=== PATIENT | male | born 1945 | race Caucasian/White ===

== ENCOUNTER → 2023-09-17 | Day surgery (SDC) | payer OTHER | END | disposition home or self-care (01) | LOC: ADM 09-05 13:30 → AMB-ENDOS 09-10 13:30 | PROVIDERS: ATTEND Colon & Rectal Surgery | DX: K57.32 Diverticulitis of large intestine without perforation or abscess without bleeding (principal); Z20.822 Contact with and (suspected) exposure to COVID-19; K64.8 Other hemorrhoids ==